=== PATIENT | male | born 1965 | race Caucasian/White ===

== ENCOUNTER 2018-04-17 17:47 | Inpatient (IN) ==
[2018-04-17] MEDS ORDERED: Morphine Inj 4 MG/ML Vial IV.PUSH ONE ×2 (18:17→19:13)
[2018-04-17 18:31] LABS: Baso # (Auto) 0.1 th/mm3 (0.0-0.2); Baso % (Auto) 0.5 % (0.0-2.0); Eos % (Auto) 0.2 % (0.0-4.0); Hematocrit 34.2 % (39.0-51.0); Hemoglobin 11.7 gm/dL (13.0-17.0); Lymph % (Auto) 7.7 % (9.0-44.0); Mean Corpuscular HGB Conc 34.2 % (32.0-36.0); Mean Corpuscular Hemoglobin 31.1 pg (27.0-34.0); Mean Corpuscular Volume 91.1 fL (80.0-100.0); Mean Platelet Volume 9.8 fL (7.0-11.0); Mono # (Auto) 0.4 th/mm3 (0.0-0.9); Mono % (Auto) 3.1 % (0.0-8.0); Neut # (Auto) 11.8 th/mm3 (1.8-7.7); Neut % (Auto) 88.5 % (16.0-70.0); Platelet Count 150 th/mm3 (150-450); Red Blood Count 3.75 mil/mm3 (4.50-5.90); Red Cell Distribution Width 17.5 % (11.6-17.2); White Blood Count 13.4 th/mm3 (4.0-11.0)
[2018-04-17 18:49] LABS: Alanine Aminotransferase 55 U/L (12-78); Albumin 2.6 g/dL (3.4-5.0); Anion Gap 5 meq/L (5-15); Aspartate Aminotransferase 90 U/L (15-37); Blood Urea Nitrogen 10 mg/dL (7-18); Calcium 8.9 mg/dL (8.5-10.1); Carbon Dioxide 22.9 meq/L (21.0-32.0); Chloride 111 meq/L (98-107); Glomerular Filtration Rate Greater Than 89 mL/min (>89); Glucose,Random 101 mg/dL (74-106); Lipase 112 U/L (73-393); Magnesium 1.4 mg/dL (1.5-2.5); Potassium 3.7 meq/L (3.5-5.1); Sodium 139 meq/L (136-145)
[2018-04-17 18:51] LABS: Alkaline Phosphatase 121 U/L (45-117); Total Protein 7.8 g/dL (6.4-8.2)
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
[2018-04-17] MEDS ORDERED: Piperacil/Tazo 4.5 GM Premix 4.5 GM/100 ML BAG IV.SIG ONE (19:12)
[2018-04-17] MEDS ORDERED: Vancomycin Inj 1 GM/200 ML PIGGYBACK IV.SIG ONE (19:12)
[2018-04-17] MEDS ORDERED: Sod Chloride 0.9% Inj 1,000 ML IV.SIG SCH (19:15)
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
--- NOTE | 2018-04-17 19:46 | XR ---
EXAM DATE: 04/17/2018 7:18 PM EDT AGE/SEX: 52 years / Male INDICATIONS: Abdominal pain. CLINICAL DATA: This is the patient's initial encounter. Patient reports that signs and symptoms have been present for 2 days and indicates a pain score of 8/10. MEDICAL/SURGICAL HISTORY: None. Appendectomy. Splenectomy. COMPARISON: No prior exams available for comparison. FINDINGS: Minimal basilar atelectasis. No effusion. No pneumothorax. Heart size within normal limits. Subacute left-sided rib fractures. CONCLUSION: Minimal basilar atelectasis. Subacute or old left rib fractures. No pneumothorax. Electronically signed by: Cedric Dahl MD 04/17/2018 7:44 PM EDT
[2018-04-17] MEDS ORDERED: Glycopyrrolate Inj 1 MG/5 ML Syringe IV.PUSH ONE (20:22)
[2018-04-17] MEDS ORDERED: Neostigmine Inj 5 MG/5 ML Syringe IV.PUSH ONE (20:22)
[2018-04-17] MEDS ORDERED: Phenylephrine/NS 1000 MCG/10ML Syringe IV.PUSH ONE (20:22)
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
[2018-04-17 20:52] LABS: Bilirubin,Urine Negative (Negative); Clarity,Urine Clear (Clear); Color,Urine Yellow (Yellw/Straw); Glucose,Urine (UA) Negative (Negative); Leukocyte Esterase,Urine Negative (Negative); Mucus,Urine Few /lpf (Occasional); Nitrite,Urine Negative (Negative); Urobilinogen,Urine 4 or Greater mg/dL (Less than 2)
[2018-04-17] MEDS ORDERED: fentaNYL Citrate Inj 100 MCG/2 ML Ampul ONE (22:15)
[2018-04-17] MEDS ORDERED: Naloxone Inj 0.4 MG/ML Vial IV.PUSH PRN (22:18)
--- NOTE | 2018-04-17 22:53 | MP ---
cc: Brian Santos MD DATE OF OPERATION: 04/17/2018 PREOPERATIVE DIAGNOSIS: Penetrating wound to the abdomen with bowel injury. POSTOPERATIVE DIAGNOSIS: Penetrating wound to the abdomen with bowel injury. PROCEDURE PERFORMED: Exploratory laparotomy, small bowel resection, rigid sigmoidoscopy. SURGEON: Brian Santos MD ANESTHESIA: General endotracheal anesthesia. ESTIMATED BLOOD LOSS: 30 mL. FINDINGS: Small bowel injury [id number]-mkz-geeteiz with a foreign body lodged in the small bowel. Sigmoidoscopy performed. No evidence of rectal injury. No sigmoidal injury. SPECIMENS: Small bowel. COMPLICATIONS: None. DESCRIPTION OF PROCEDURE: The patient was brought to the operating room and placed on the operating table in supine position. Bilateral sequential inflation device placed on the lower extremities. General anesthesia instituted. Sutton catheter placed. Antibiotics initiated. The abdomen was prepped and draped sterilely. The infraumbilical midline incision was made and taken through the subcutaneous tissue. The peritoneal cavity was entered. The small bowel was inspected. There was a small bowel injury, just distal to the injury. The injury was in the antimesenteric border. There was pus coming out of the root of the mesentery in this region. Distally, there was a foreign body palpated. A segmental resection was performed using a ALMAZ stapler. A [id number] functional end-to-end anastomosis was created in the usual manner. The mesenteric defect closed with 2-0 silk suture in a running manner. The small bowel was inspected to the ligament of Treitz and the right colon. There was no evidence of any further injury. The ascending colon and descending colon were inspected. No evidence of injury. In the pelvic floor, there was a stain and it appeared to be fecal. No gross contamination identified. It was decided to do a rigid sigmoidoscopy at this point. The sigmoid was occluded from above and I went between the patient's legs and performed a rigid sigmoidoscopy. No evidence of bowel injury identified. At this point, I then scrubbed back in and irrigated the abdominal cavity with copious amounts of saline. The midline was then approximated with #1 PDS in a running manner. The wound was irrigated with saline. The skin was approximated with staple and a sterile MERCY dressing placed. The patient was then awakened and taken to the recovery room. MD ESME Reece/yves , 10:25 PM , 10:35 PM
[2018-04-17] MEDS: Morphine Inj 30 MG/30 ML PCA.VIAL PCA PRN (23:19)
[2018-04-17] MEDS: Pantoprazole Inj 40 MG Vial IV.PUSH SCH (23:22)
[2018-04-17] MEDS: Sod Chloride 0.9% Inj 1,000 ML IV.CONT SCH (23:22)
[2018-04-18] MEDS: Multivitamin Inj 10 ML, Thiamine Inj 100 MG, Folic Acid Inj 1 MG in Sodium Chlor 0.9% I... IV.SIG SCH (00:55)
[2018-04-18] MEDS: Piperacil/Tazo 3.375 GM Premix 50 ML IV.SIG SCH ×3 (02:07→18:35)
[2018-04-18] MEDS ORDERED: Chlorhexidine Gluconate 2% 1 Pack (2 Cloths) TOPICAL PRN (04:00)
[2018-04-18] MEDS ORDERED: Chlorhexidine Gluconate 2% 1 Pack (2 Cloths) TOPICAL SCH (04:00)
[2018-04-18 07:06] LABS: Baso % (Auto) 0.3 % (0.0-2.0); Hematocrit 32.5 % (39.0-51.0); Hemoglobin 10.6 gm/dL (13.0-17.0); Lymph # (Auto) 1.2 th/mm3 (1.0-4.8); Lymph % (Auto) 9.4 % (9.0-44.0); Mean Corpuscular HGB Conc 32.7 % (32.0-36.0); Mean Corpuscular Hemoglobin 30.2 pg (27.0-34.0); Mean Corpuscular Volume 92.3 fL (80.0-100.0); Mean Platelet Volume 10.1 fL (7.0-11.0); Mono # (Auto) 0.4 th/mm3 (0.0-0.9); Mono % (Auto) 3.4 % (0.0-8.0); Neut # (Auto) 11.2 th/mm3 (1.8-7.7); Neut % (Auto) 86.9 % (16.0-70.0); Platelet Count 132 th/mm3 (150-450); Red Blood Count 3.52 mil/mm3 (4.50-5.90); Red Cell Distribution Width 17.3 % (11.6-17.2); White Blood Count 12.9 th/mm3 (4.0-11.0)
[2018-04-18] MEDS: Docusate Sodium 100 MG Capsule PO SCH ×2 (09:44→20:33)
[2018-04-18] MEDS: Sod Chloride 0.9% Inj 1,000 ML IV.CONT SCH ×2 (09:53→18:36)
[2018-04-18 10:16] LABS: Alanine Aminotransferase 40 U/L (12-78); Alkaline Phosphatase 94 U/L (45-117); Anion Gap 10 meq/L (5-15); Aspartate Aminotransferase 56 U/L (15-37); Blood Urea Nitrogen 11 mg/dL (7-18); Calcium 8.2 mg/dL (8.5-10.1); Carbon Dioxide 20.5 meq/L (21.0-32.0); Chloride 109 meq/L (98-107); Glomerular Filtration Rate Greater Than 89 mL/min (>89); Glucose,Random 78 mg/dL (74-106); Potassium 4.2 meq/L (3.5-5.1); Sodium 139 meq/L (136-145); Total Protein 6.5 g/dL (6.4-8.2)
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
[2018-04-18] MEDS ORDERED: Influenza (Quadrivalent) Vaccine 0.5 ML Syringe IM ONE (14:00)
[2018-04-18] MEDS: Enoxaparin Inj 30 MG/0.3 ML Syringe SQ SCH (20:34)
[2018-04-19] MEDS: Multivitamin Inj 10 ML, Thiamine Inj 100 MG, Folic Acid Inj 1 MG in Sodium Chlor 0.9% I... IV.SIG SCH ×2 (00:11→22:27)
[2018-04-19] MEDS: Pantoprazole Inj 40 MG Vial IV.PUSH SCH ×2 (00:18→22:21)
[2018-04-19] MEDS: Piperacil/Tazo 3.375 GM Premix 50 ML IV.SIG SCH ×4 (02:17→22:21)
[2018-04-19 04:17] LABS: Baso % (Auto) 0.1 % (0.0-2.0); Hematocrit 30.3 % (39.0-51.0); Hemoglobin 10.1 gm/dL (13.0-17.0); Lymph # (Auto) 1.6 th/mm3 (1.0-4.8); Lymph % (Auto) 10.9 % (9.0-44.0); Mean Corpuscular HGB Conc 33.2 % (32.0-36.0); Mean Corpuscular Hemoglobin 30.4 pg (27.0-34.0); Mean Corpuscular Volume 91.4 fL (80.0-100.0); Mean Platelet Volume 9.6 fL (7.0-11.0); Mono # (Auto) 0.9 th/mm3 (0.0-0.9); Neut # (Auto) 11.9 th/mm3 (1.8-7.7); Platelet Count 158 th/mm3 (150-450); Red Blood Count 3.32 mil/mm3 (4.50-5.90); Red Cell Distribution Width 16.8 % (11.6-17.2); White Blood Count 14.4 th/mm3 (4.0-11.0)
[2018-04-19 04:37] LABS: Anion Gap 8 meq/L (5-15); Blood Urea Nitrogen 16 mg/dL (7-18); Calcium 7.8 mg/dL (8.5-10.1); Carbon Dioxide 22.3 meq/L (21.0-32.0); Chloride 109 meq/L (98-107); Glomerular Filtration Rate Greater Than 89 mL/min (>89); Glucose,Random 89 mg/dL (74-106); Potassium 4.1 meq/L (3.5-5.1); Sodium 139 meq/L (136-145)
[2018-04-19] MEDS: Sod Chloride 0.9% Inj 1,000 ML IV.CONT SCH ×2 (06:57→13:45)
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
[2018-04-19] MEDS: Docusate Sodium 100 MG Capsule PO SCH ×2 (08:12→21:08)
[2018-04-19] MEDS: Enoxaparin Inj 30 MG/0.3 ML Syringe SQ SCH ×2 (08:12→21:08)
[2018-04-19] MEDS: Morphine Inj 30 MG/30 ML PCA.VIAL PCA PRN ×2 (10:29→18:33)
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
--- NOTE | 2018-04-19 18:43 | P.PNADD ---
Addendum to Inpatient Note Additional information: pt see @ 1800 full note to follow
[2018-04-20] MEDS: Sod Chloride 0.9% Inj 1,000 ML IV.CONT SCH ×3 (01:07→22:14)
[2018-04-20] MEDS: Piperacil/Tazo 3.375 GM Premix 50 ML IV.SIG SCH ×4 (04:47→21:16)
[2018-04-20] MEDS: Docusate Sodium 100 MG Capsule PO SCH ×2 (08:35→21:06)
[2018-04-20] MEDS: Enoxaparin Inj 30 MG/0.3 ML Syringe SQ SCH ×2 (08:35→21:05)
[2018-04-20] MEDS: Acetaminophen 325 MG Tablet PO PRN ×2 (12:15→21:15)
[2018-04-20] MEDS ORDERED: Morphine Inj 4 MG/ML Vial IV.PUSH PRN (12:31)
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
[2018-04-21] MEDS: Pantoprazole Inj 40 MG Vial IV.PUSH SCH
[2018-04-21] MEDS: Piperacil/Tazo 3.375 GM Premix 50 ML IV.SIG SCH ×4 (06:05→21:25)
[2018-04-21 07:28] LABS: Baso # (Auto) 0.1 th/mm3 (0.0-0.2); Baso % (Auto) 0.8 % (0.0-2.0); Eos # (Auto) 0.2 th/mm3 (0.0-0.4); Eos % (Auto) 1.9 % (0.0-4.0); Hematocrit 29.4 % (39.0-51.0); Hemoglobin 9.9 gm/dL (13.0-17.0); Lymph # (Auto) 2.1 th/mm3 (1.0-4.8); Lymph % (Auto) 17.9 % (9.0-44.0); Mean Corpuscular HGB Conc 33.6 % (32.0-36.0); Mean Corpuscular Hemoglobin 30.2 pg (27.0-34.0); Mean Corpuscular Volume 89.9 fL (80.0-100.0); Mono # (Auto) 1.7 th/mm3 (0.0-0.9); Mono % (Auto) 14.5 % (0.0-8.0); Neut # (Auto) 7.6 th/mm3 (1.8-7.7); Neut % (Auto) 64.9 % (16.0-70.0); Platelet Count 146 th/mm3 (150-450); Red Blood Count 3.27 mil/mm3 (4.50-5.90); Red Cell Distribution Width 16.6 % (11.6-17.2); White Blood Count 11.8 th/mm3 (4.0-11.0)
[2018-04-21] MEDS: Sod Chloride 0.9% Inj 1,000 ML IV.CONT SCH ×2 (07:30→17:08)
[2018-04-21] MEDS: Docusate Sodium 100 MG Capsule PO SCH ×2 (09:11→20:46)
[2018-04-21] MEDS: Enoxaparin Inj 30 MG/0.3 ML Syringe SQ SCH ×2 (09:11→20:46)
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
[2018-04-21] MEDS: Acetaminophen 325 MG Tablet PO PRN (20:47)
[2018-04-22] MEDS: Pantoprazole Inj 40 MG Vial IV.PUSH SCH (00:08)
[2018-04-22] MEDS: Sod Chloride 0.9% Inj 1,000 ML IV.CONT SCH (04:58)
[2018-04-22] MEDS: Piperacil/Tazo 3.375 GM Premix 50 ML IV.SIG SCH ×2 (04:59→09:50)
[2018-04-22 08:36] VITALS: BP 119/66; PULSE 93; RESP 18; TEMP 99; O2SAT 93
[2018-04-22] MEDS: Docusate Sodium 100 MG Capsule PO SCH (09:48)
[2018-04-22] MEDS: Enoxaparin Inj 30 MG/0.3 ML Syringe SQ SCH (09:51)
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
== END 2018-04-22 12:25 | disposition home or self-care (01) ==
LOC: NEPE 17:47 → NEDA 19:20 → N07 20:44
PROVIDERS: ADMIT Surgery; ATTEND Surgery